=== PATIENT | female | born 1970 ===

== ENCOUNTER 2017-05-24 19:52 | Emergency (ER) | payer OTHER ==
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
[2017-05-24 20:03] VITALS: BP 132/87; PULSE 52; RESP 17; TEMP 97.6; O2SAT 100
--- NOTE | 2017-05-25 08:26 | RAD ---
PROCEDURE: Cervical Spine Radiographs. HISTORY: Pain. COMPARISON: None. FINDINGS: BONES: The examination is somewhat limited due to partial obscuration of the odontoid by overlying occiput open-mouth projection. . No evidence compression fractures nor retropulsed fragments. There is a minimal anterior subluxation of C4 over C5 with straightening the normal cervical lordosis above below this level. DISC SPACES: Minor degenerative spondylosis seen at the C5-C6 and C6-C7 levels with small marginal anterior osteophyte formation. SOFT TISSUES: Normal. No prevertebral soft tissue swelling. OTHER FINDINGS: None. IMPRESSION: No acute fractures. Mild degenerative spondylosis of the most notably affecting the C5-C6 and C6-C7 levels
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
== END 2017-05-24 21:27 | disposition home or self-care (01) ==
LOC: ED 19:52
DX: Z04.1 Encounter for examination and observation following transport accident (principal)

== ENCOUNTER 2018-11-17 16:06 | Emergency (ER) | payer OTHER | END 2018-11-17 16:37 | disposition home or self-care (01) | LOC: ED 16:06 ==